=== PATIENT | male | born 1975 | race Caucasian/White ===

== ENCOUNTER 2017-02-15 02:45 | Emergency (ER) | payer OTHER ==
[~2017-02-15] VITALS: Ht 180.3 cm; Wt 88.5 kg
--- NOTE | ~2017-02-15 | EKG ---
PATIENT: OTILIO CAO UNIT #: [id number] Ventricular Rate: 81 BPM Atrial Rate: 81 BPM P-R Interval: 190 ms QRS Duration: 88 ms Q-T Interval: 390 ms QTC Calculation(Bezet): 453 ms P Kerby: 8 degrees Calculated R Kerby: -13 degrees Calculated T Kerby: 8 degrees Diagnosis Line: Normal sinus rhythm Diagnosis Line: Normal ECG Diagnosis Line: When compared with ECG of 21-MAY-2016 22:29, Diagnosis Line: No significant change was found Diagnosis Line: Confirmed by CHEVY RUBIN MD ([id number]) on Diagnosis Line: 02/17/2017 4:04:26 PM INTERPRETING MD: SCOTTIE ADAMSON
[~2017-02-15 02:45] MED LIST: AFREZZA1 EAC1 SUBQ; ASPIRIN81 MG PO; CLEOCIN PO; DAKIN'S MODIF1000 ML; LEVEMIR SQ; METFORMIN HCL500 M1 PO; MULTI VITAMIN1 EACH PO; NOVOLOG100 U/M2 SUBQ; PROTONIX PO; ROXICODONE5 MG PO; TYLENOL325 M1 PO; VANTIN200 MG PO; ZESTRIL10 M2 PO
[2017-02-15] MEDS ORDERED: LANTUS100 U/ML SUBQ (03:03)
[2017-02-15] MEDS ORDERED: LISINOPRIL10 MG PO (03:03)
[2017-02-15] MEDS ORDERED: PROTONIX PO (03:04)
[2017-02-15] MEDS ORDERED: HUMALOG100 UNIT/1 SUBQ (03:04)
[2017-02-15] MEDS ORDERED: GLUCOPHAGE500 MG PO (03:04)
[2017-02-15 03:32] LABS: BASOPHIL% 0.7 % (0-2.5); DIFF IND NO; EOSINOPHIL# 0.2 X10e3 (0-0.7); EOSINOPHIL% 3.5 % (0.0-7.0); HEMATOCRIT 39.6 % (38.0-50.0); HEMOGLOBIN 13.8 gm/dL (13.0-16.0); LYMPHOCYTE# 1.5 X10e3 (1.0-3.5); LYMPHOCYTE% 25.8 % (17.0-45.0); MEAN CELL VOLUME 93.7 FL (83-96); MEAN CORPUSCULAR HEMOGLOBIN 32.7 PG (28-34); MEAN CORPUSCULAR HGB CONC 34.9 g/dL (30-36); MEAN PLATELET VOLUME 7.8 FL (6.5-11.5); MONOCYTE# 0.6 X10e3 (0-1.0); MONOCYTE% 9.9 % (3.0-12.0); NEUTROPHIL# 3.5 X10e3 (1.5-7.1); NEUTROPHIL% 60.1 % (40-75); PLATELET COUNT 171 X10e3 (140-420); RED BLOOD COUNT 4.22 X10e (3.90-5.60); RED CELL DISTRIBUTION WIDTH 12.5 % (11.0-15.5); WHITE BLOOD COUNT 5.7 X10e3 (4.0-10.5)
[2017-02-15 03:38] LABS: INR 0.9; PROTHROMBIN TIME (PATIENT) 10.1 SECONDS (9.5-12.4)
[2017-02-15 03:45] LABS: PARTIAL THROMBOPLASTIN TIME 23.7 SECONDS (25.6-38.1)
[2017-02-15 03:51] LABS: ALBUMIN SERUM 3.8 g/dL (3.5-5.0); ALKALINE PHOSPHATASE 99 U/L (32-92); ALT (SGPT) 47 U/L (10-40); AST (SGOT) 57 U/L (10-42); BILIRUBIN, DIRECT <0.1 mg/dL (0.0-0.2); BILIRUBIN,INDIRECT 0.3 mg/dL (0.0-0.9); BILIRUBIN,TOTAL 0.4 mg/dL (0.2-2.0); BLOOD UREA NITROGEN 14 mg/dL (9-23); CALCIUM SERUM 8.3 mg/dL (8.4-10.2); CARBON DIOXIDE 23 mmol/L (22-31); CHLORIDE 104 mmol/L (100-111); GLOM FILT RATE Estimated 93.7 mL/min (>60); GLUCOSE FASTING 132 mg/dL (70-110); LIPASE 15 U/L (22-51); POTASSIUM 3.6 mmol/L (3.5-5.1); PROTEIN TOTAL SERUM 6.4 g/dL (6.0-8.3); SODIUM 135 mmol/L (135-145)
[2017-02-15 03:52] LABS: ALCOHOL BLOOD 323 mg/dL (0)
== END 2017-02-15 11:47 | disposition home or self-care (01) ==
LOC: SED 02:45
PROVIDERS: Emergency Medicine
DX: F10.129 Alcohol abuse with intoxication, unspecified (principal); E10.649 Type 1 diabetes mellitus with hypoglycemia without coma; Z90.49 Acquired absence of other specified parts of digestive tract; Z79.4 Long term (current) use of insulin
CPT/HCPCS: 36415; 80048; 80076; 82947; 83690; 85025; 85610; 85730; 93005; 96360; 96361; 96365; 96366; 99284; G0480; J3411; J3475

== ENCOUNTER 2017-02-19 16:37 | Inpatient (IN) | payer OTHER ==
[~2017-02-19] VITALS: Ht 180.3 cm; Wt 80.0 kg
--- NOTE | ~2017-02-19 | EKG ---
PATIENT: OTILIO CAO UNIT #: [id number] Ventricular Rate: 82 BPM Atrial Rate: 82 BPM P-R Interval: 144 ms QRS Duration: 86 ms Q-T Interval: 406 ms QTC Calculation(Bezet): 474 ms P Hitchcock: 0 degrees Calculated R Hitchcock: -27 degrees Calculated T Hitchcock: 39 degrees Diagnosis Line: Normal sinus rhythm Diagnosis Line: Low voltage QRS Diagnosis Line: Borderline ECG Diagnosis Line: When compared with ECG of 15-FEB-2017 03:36, Diagnosis Line: T wave amplitude has increased in Lateral leads Diagnosis Line: Confirmed by TJ VARMA MD ([id number]) on 02/20/2017 Diagnosis Line: 7:14:16 PM INTERPRETING MD: AVANI ADAMSON
--- NOTE | ~2017-02-19 | CT4 ---
[facility] A Service of [facility] RADIOLOGY TEXT RESULTS PATIENT: OTILIO CAO LOCATION: [facility] 303- : [birth year] UNIT #: [id number] AGE: [address]: Rhett Miller MD SEX: M ORDER DR: [id number] [facility] [address] [place], [place] [address] [id number] I MR#: [id number] Acc #: [id number] NAME: OTILIO CAO : 1975 SEX: M STUDY DATE/TIME: 02/19/2017 22:48 UNIT: A PCU ROOM: [facility] STUDY DESCRIPTION: CT Abd and Pelv Wo Cont Attending Physician: Rhett Miller M.D. Ordering Physician: Paul Welsh D.O. Primary Care Physician: Marilou Peter A.P.R.N. MEDICAL IMAGING REPORT This report is preliminary unless electronic signature is present EXAM CT abdomen and pelvis, noncontrast, kidney stone protocol, 02/19/2017. HISTORY 41-year-old male in the ED complaining of a 3-day history of generalized abdomen pain with nausea and vomiting. TECHNIQUE CT examination of the abdomen and pelvis was performed without oral or IV contrast using kidney stone protocol, as ordered. This CT exam was performed with one or more of the following radiation dose reduction techniques: automatic exposure control, adjustment of mA and/or kV according to patient size, and iterative reconstruction. FINDINGS ABDOMEN FINDINGS: Both kidneys, both ureters and the urinary bladder are normal in noncontrast CT appearance. Coarse parenchymal calcifications scattered throughout the pancreas compatible with chronic calcific pancreatitis. Chronic atrophy of the distal pancreatic tail. This is unchanged since 05/22/2016. No convincing evidence of acute pancreatitis. Cholecystectomy. No bile duct or pancreatic duct dilatation. Liver and spleen are normal in size and appearance. Small bowel and colon are normal in caliber and appearance, as imaged. Normal appendix. Normal-caliber abdominal aorta. PELVIS FINDINGS: Urinary bladder, prostate, and rectum are negative. No inguinal hernia. [facility] A Service of [facility] RADIOLOGY TEXT RESULTS PATIENT: OTILIO CAO LOCATION: A 303-01 : [birth year] UNIT #: [id number] AGE: [address]: Rhett Miller MD SEX: M ORDER DR: Limited lung base images show no active disease in the lower chest. IMPRESSION 1. No acute abnormality is seen within the abdomen or pelvis. No visible nephrolithiasis or evidence of urinary obstruction. 2. Chronic calcific pancreatitis with chronic atrophy of the distal pancreatic tail, unchanged since 05/22/2016. No convincing CT evidence of acute pancreatitis. 3. Cholecystectomy. No bile duct or pancreatic duct dilatation. 4. Normal appendix. Dictated by... Marino Pedroza M.D. THIS IS AN ELECTRONICALLY VERIFIED REPORT Marino Pedroza M.D. at 02/20/2017 9:57 PM HARVEYW/geraldine TD: 02/20/2017 09:58 JOB #: [id number] MEDICAL IMAGING REPORT Page 1 of 1 COPY
--- NOTE | ~2017-02-19 | HP ---
Unit #: [id number] #: [id number] Patient: OTILIO CAO [id number] [address] [place], [place] [address] [id number] I MR#: [id number] NAME: OTILIO CAO ROOM: 303 Age: 41 Sex: M Admission Date: 02/20/2017 : 1975 Attending Physician: Marcie Avila M.D. Primary Care Physician: Marilou Peter A.P.R.N. HISTORY AND PHYSICAL CHIEF COMPLAINT Intractable nausea, vomiting, with hematemesis, acute kidney injury, and uncontrolled diabetes mellitus. HISTORY This 41-year-old male with IDDM following a partial pancreatectomy for chronic pancreatitis, is admitted for intractable nausea and vomiting. The patient was well until four days prior to admission when he developed myalgias, headaches, intractable nausea and vomiting, feeling weak and dizzy. He states that he had significant amount of hematemesis with blood clots as well. He has been using sliding scale insulin for uncontrolled diabetes mellitus. He presented at this emergency department late last evening with stable vital signs, although mildly tachycardia. He was treated with Zofran, Phenergan, Protonix, 2 L of saline, small dose of morphine. I am asking for a dose of Reglan to be administered due to persistent nausea and vomiting. Labs are notable for uncontrolled diabetes mellitus, pseudohyponatremia, acute kidney injury. His hematocrit is normal, he is heme negative from below on rectal examination. Patient does drink on a daily basis, two 24 oz beers plus a shot of liquor, his last drink; however, was five days ago. PAST MEDICAL HISTORY 1. IDDM x13 years, following a partial pancreatectomy. 2. Chronic pancreatitis requiring partial pancreatectomy. 3. 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 4. Admission 05/2016 for DKA. 5. Hand surgery. 6. Cholecystectomy. ALLERGIES No known drug allergies. HOME MEDICATIONS Levemir 10 units subcu daily; NovoLog 5 units t.i.d. plus sliding scale insulin. FAMILY HISTORY Negative for diabetes. SOCIAL HISTORY The patient lives with her roommate. Drinks two 24 oz beers and one shot of liquor daily, although his last drink was several days ago. Does not Unit #: [id number] #: [id number] Patient: OTILIO CAO smoke, does not use illicit drugs. REVIEW OF SYSTEMS Notable for nausea, vomiting, hematemesis, dizziness, myalgias, headache, weakness, diabetes, chronic pancreatitis, above mentioned surgeries. All other systems were reviewed and otherwise negative. PHYSICAL EXAMINATION GENERAL: Pleasant 41-year-old male currently in no acute distress. VITAL SIGNS: Temperature 97.8, pulse 113, respiration 16, blood pressure 123/87, O2 saturation is 100% on room air. HEENT: Eyes - PERRLA. Extraocular muscles are intact. Pharynx is benign. NECK: Supple without adenopathy or thyromegaly. CHEST: Clear. CARDIAC: Normal S1 and S2 without S3, S4 or murmur. ABDOMEN: Bowel sounds are present. No hepatosplenomegaly, tenderness or masses. Well healed scars are noted. EXTREMITIES: Without clubbing, cyanosis or edema. Pedal pulses are present. No ulcers on the feet. NEUROLOGIC: Patient is awake, alert and oriented. Cranial nerves are intact. He has equal strength throughout, no tremors. RECTAL: Heme negative bowel stool. DIAGNOSTIC STUDIES LABS: Hematocrit 47.8, white blood count 10.4, normal platelet count. SMA 12 - glucose 326, BUN 26, creatinine 1.5, up from a creatinine of 1 several days ago. Sodium 129, which corrects to about 134, chloride is 87, ALT 50, alk phos 126. Normal amylase and lipase. BHOB is 4.75 but patient's anion gap is normal. IMAGING STUDIES: CT scan of the abdomen and pelvis show chronic calcific pancreatic changes with atrophy unchanged. CARDIOLOGY STUDIES: EKG - sinus rhythm, rate 82, normal appearing. ASSESSMENT 1. Intractable nausea and vomiting with hematemesis, however, the patient's hematocrit is normal and he is heme negative from below. 2. History of chronic pancreatitis, status post partial pancreatectomy with normal pancreatic enzymes. 3. History of alcohol abuse but none for several days without withdrawal. 4. Uncontrolled insulin dependent diabetes mellitus. 5. Acute kidney injury, secondary to dehydration, nausea, and vomiting. PLANS 1. IV fluids, Reglan, Zofran, proton pump inhibitor. Will ask [facility] to see. 2. Benzos and vitamins. 3. Levemir. 4. Sliding scale insulin. 5. SCDs for DVT prophylaxis. 6. Repeat labs this morning. Dictated by Marcie Avila M.D. Unit #: [id number] #: [id number] Patient: OTILIO CAO AML/ts TD: 02/20/2017 07:01 JOB #: [id number] HISTORY AND PHYSICAL Page 1 of 1 X aMrcie Avila MD X HISTORY AND PHYSICAL
--- NOTE | ~2017-02-19 | CO ---
Unit #: [id number] #: [id number] Patient: OTILIO CAO [id number] [address] [place], [place] [address] [id number] I MR#: [id number] NAME: OTILIO CAO ROOM: 303 Age: 41 Sex: M Admission Date: 02/20/2017 : 1975 Attending Physician: Rhett Miller M.D. Primary Care Physician: Marilou Peter A.P.R.N. Consultation Date: 02/20/2017 CONSULTATION REPORT REASON FOR CONSULTATION Hematemesis. Thank you very much for asking us to see Mr. Cao. HISTORY OF PRESENT ILLNESS He is a 41-year-old white male, who has a long history of heavy alcohol use and past surgical history for cholecystectomy and partial pancreatectomy due to chronic pancreatitis. This was performed in [place]. He states that 3 to 4 days ago, he developed some intermittent nausea, vomiting, and had coffee-grounds emesis. He has had no rectal bleeding. No melena. He has no abdominal pain. He presents at this time for further evaluation and treatment. CT scan of the abdomen and pelvis was performed. Other than postsurgical changes of the pancreas, no acute intraabdominal abnormality was found. ALLERGIES No known medical allergies. MEDICATIONS Lisinopril, Lantus, Humalog, Glucophage, Protonix. PAST SURGICAL HISTORY Partial pancreatectomy and cholecystectomy. PAST MEDICAL HISTORY Hypertension, chronic pancreatitis, diabetes. SOCIAL HISTORY No tobacco use. The patient still drinks some hard liquor and beer 4 to 5 days a week. REVIEW OF SYSTEMS Negative except for above. IMMUNIZATION STATUS Unknown. FAMILY HISTORY Noncontributory. PHYSICAL EXAMINATION GENERAL: Well-developed, well-nourished white male, in no apparent Unit #: [id number] #: [id number] Patient: OTILIO CAO distress. VITAL SIGNS: Afebrile. Vital signs stable. NECK: Supple. No thyromegaly or adenopathy. HEENT: Sclerae nonicteric. Extraocular movements are intact. BACK: No CVA or spinous tenderness. ABDOMEN: Flat, soft, nontender. Well-healed chevron upper abdominal incision. EXTREMITIES: No calf tenderness. No erythema. DIAGNOSTIC STUDIES LABORATORY RESULTS: Reveal the patient to have a CMP that shows a glucose of 372, BUN 24, sodium 130, chloride 94, CO2 16. Normal liver function studies, amylase and lipase. PT and PTT were 10.1 and 23.7 respectively. White count is 8 with hemoglobin 15.3, hematocrit 44.8, MCV of 95.5, and platelet count of 156,000. IMPRESSION A 41-year-old white male with hematemesis, history of chronic pancreatitis, and continued alcohol use. We feel he needs upper endoscopy for further evaluation. All the risks and benefits of the procedure full explained with the patient in detail. He understands the risk of bleeding, perforation, emergency surgery, , transfer, and other risks. He understands and requests to proceed. Dictated by... Janet Beltran/jennifer TD: 02/20/2017 16:14 JOB #: [id number] CC: [facility] CONSULTATION REPORT Page 1 of 1 X Barak Mancini MD X CONSULTATION REPORT
--- NOTE | ~2017-02-19 | OR ---
Unit #: [id number] #: [id number] Patient: OTILIO CAO [id number] [address] [address] [id number] I MR#: [id number] NAME: OTILIO CAO ROOM: 303 Date of Procedure: 02/20/2017 Admission Date: 02/20/2017 Surgeon: Barak Mancini M.D. : 1975 Attending Physician: Rhett Miller M.D. Primary Care Physician: Marilou Peter A.P.R.N. OPERATIVE REPORT PREOPERATIVE DIAGNOSIS Hematemesis. POSTOPERATIVE DIAGNOSIS Hematemesis. PROCEDURES PERFORMED 1. Esophagogastroduodenoscopy. 2. Biopsy of antrum for Helicobacter pylori testing. ANESTHESIA Monitored anesthesia care. FINDINGS The patient was found to have on an upper endoscopy a medium-sized hiatal hernia, severe ulcerative esophagitis, and ulcerative gastritis. SPECIMENS Sent to Pathology. COMPLICATIONS None apparent. CONDITION The patient tolerated the procedure well. INDICATIONS FOR PROCEDURE The patient is a 41-year-old white male, who has a long history of heavy alcohol use. He has had a partial pancreatectomy for chronic pancreatitis. He developed nausea, vomiting, and hematemesis in the last several days. He presents at this time for evaluation by upper endoscopy. He was reportedly Hemoccult negative on rectal examination in the emergency room. DESCRIPTION OF PROCEDURE After obtaining informed consent, the patient was brought to the endoscopy suite and after adequate monitored anesthesia care, had the endoscope placed through the mouth into the upper esophagus under direct vision. It was advanced to the second and third portion of the duodenum without difficulty with the lumen always in view. There was no blood present. The second and third portion of the duodenum were normal as was the Unit #: [id number] #: [id number] Patient: OTILIO CAO duodenal bulb. The pylorus opened normally. In the distal stomach, the patient was found to have ulcerative gastritis present. No blood was present. A biopsy was obtained for Helicobacter pylori testing. On retroflexing back to the GE junction, there was a medium sized hiatal hernia, but no other significant abnormalities in the proximal stomach. On pulling back above the GE junction, there was no stenosis, stricture, or neoplasm seen, but there was severe ulcerative esophagitis involving the distal two-thirds of the esophagus. There was no blood present. The remaining portion of the esophagus was within normal limits. Laryngeal structures were grossly normal as viewed from above. The patient went from the endoscopy suite to the recovery area in stable condition. RECOMMENDATIONS Proton pump inhibitors. He needs to stop his alcohol use. All has been communicated to Dr. Miller of [facility] physicians. Dictated by... Barak Mancini M.D. ISABEL/jennifer TD: 02/20/2017 16:42 JOB #: [id number] CC: [facility] OPERATIVE REPORT Page 1 of 1 X Barak Mancini MD X PROCEDURE OPERATIVE NOTE
[~2017-02-19 16:37] MED LIST changes: +GLUCOPHAGE500 MG PO; +HUMALOG100 UNIT/1 SUBQ; +LANTUS100 U/ML SUBQ; +LISINOPRIL10 MG PO
[2017-02-19 17:24] LABS: BASOPHIL# 0.1 X10e3 (0-0.3); BASOPHIL% 0.7 % (0-2.5); EOSINOPHIL% 0.1 % (0.0-7.0); HEMATOCRIT 47.8 % (38.0-50.0); HEMOGLOBIN 16.7 gm/dL (13.0-16.0); LYMPHOCYTE# 1.3 X10e3 (1.0-3.5); LYMPHOCYTE% 12.7 % (17.0-45.0); MEAN CELL VOLUME 93.1 FL (83-96); MEAN CORPUSCULAR HEMOGLOBIN 32.6 PG (28-34); MEAN PLATELET VOLUME 7.3 FL (6.5-11.5); NEUTROPHIL% 76.5 % (40-75); PLATELET COUNT 213 X10e3 (140-420); RED BLOOD COUNT 5.13 X10e (3.90-5.60); RED CELL DISTRIBUTION WIDTH 12.4 % (11.0-15.5); WHITE BLOOD COUNT 10.4 X10e3 (4.0-10.5)
[2017-02-19 17:27] LABS: DIFF IND NO
[2017-02-19 17:48] LABS: ALBUMIN SERUM 4.3 g/dL (3.5-5.0); BILIRUBIN, DIRECT 0.2 mg/dL (0.0-0.2); BILIRUBIN,INDIRECT 1.1 mg/dL (0.0-0.9); BILIRUBIN,TOTAL 1.3 mg/dL (0.2-2.0); BUN/CREATININE RATIO 17.33; CALCIUM SERUM 9.1 mg/dL (8.4-10.2); CREATININE SERUM 1.5 mg/dL (0.6-1.4); GLOM FILT RATE Estimated 57.4 mL/min (>60); POTASSIUM 3.9 mmol/L (3.5-5.1); PROTEIN TOTAL SERUM 8.2 g/dL (6.0-8.3)
[2017-02-19 21:13] LABS: POC - CKMB 1.7 ng/mL (0.0-7.9); POC - TROPONIN <0.05 ng/mL (<=0.05)
[2017-02-20 03:47] LABS: BASOPHIL# 0.1 X10e3 (0-0.3); BASOPHIL% 0.7 % (0-2.5); EOSINOPHIL% 0.1 % (0.0-7.0); HEMATOCRIT 44.8 % (38.0-50.0); HEMOGLOBIN 15.3 gm/dL (13.0-16.0); LYMPHOCYTE% 12.2 % (17.0-45.0); MEAN CELL VOLUME 95.5 FL (83-96); MEAN CORPUSCULAR HEMOGLOBIN 32.6 PG (28-34); MEAN CORPUSCULAR HGB CONC 34.2 g/dL (30-36); MONOCYTE# 0.9 X10e3 (0-1.0); MONOCYTE% 11.2 % (3.0-12.0); NEUTROPHIL# 6.1 X10e3 (1.5-7.1); NEUTROPHIL% 75.8 % (40-75); PLATELET COUNT 156 X10e3 (140-420); RED CELL DISTRIBUTION WIDTH 12.1 % (11.0-15.5)
[2017-02-20 03:49] LABS: DIFF IND NO
[2017-02-20 04:08] LABS: BUN/CREATININE RATIO 17.14; CALCIUM SERUM 8.4 mg/dL (8.4-10.2); CREATININE SERUM 1.4 mg/dL (0.6-1.4); GLOM FILT RATE Estimated 62.4 mL/min (>60); POTASSIUM 4.7 mmol/L (3.5-5.1)
[2017-02-20 06:48] LABS: URINE SOURCE CLEAN CATCH
[2017-02-20 06:57] LABS: URINE APPEARANCE CLEAR; URINE BILIRUBIN NEG (NEG); URINE BLOOD NEG (NEG); URINE COLOR YELLOW; URINE GLUCOSE >1000 MG/DL (NEG); URINE KETONE 3+ (NEG); URINE LEUKOCYTE ESTERASE NEG (NEG); URINE NITRATE NEG (NEG); URINE PH 5.5 (5-8); URINE PROTEIN 1+ (NEG); URINE SPECIFIC GRAVITY 1.027 (1.003-1.035)
[2017-02-20 06:59] LABS: URBCS1 AUWI 0-2 /[HPF] (0-2); URINE BACTERIA AUWI NEG (NEGATIVE); URINE SQUAMOUS EPITHELIAL CELL NONE SEEN /[HPF]; UWBCS1 AUWI 0-2 (0-5)
[2017-02-20 07:11] LABS: CULTURE INDICATED? NO
[2017-02-20] MEDS ORDERED: HUMALOG100 UNIT/1 SUBQ (16:38)
[2017-02-20] MEDS ORDERED: LANTUS100 U/ML SUBQ (16:38)
[2017-02-20] MEDS ORDERED: PROTONIX PO (16:39)
[2017-02-20] MEDS ORDERED: REGLAN5 MG PO (16:40)
== END 2017-02-20 18:29 | disposition home or self-care (01) | DRG 381 ==
LOC: CED 16:37 → CEDOF 02-20 02:56 → C3A PCU 02-20 04:16 → CED 02-20 11:45 → CEDOF 02-20 11:45 → C3A PCU 02-20 11:45 → CEDOF 02-20 11:45 → C3A PCU 02-20 14:45 → CEDOF 02-20 14:45 → C3A PCU 02-20 18:29
PROVIDERS: Emergency Medicine; Internal Medicine; Surgery
PROC: 0DB68ZZ Excision of Stomach, Via Natural or Artificial Opening Endoscopic (ICD-10-PCS; principal; 2017-02-20 09:27)
DX: K22.10 Ulcer of esophagus without bleeding (principal); N17.9 Acute kidney failure, unspecified; K92.0 Hematemesis; E11.65 Type 2 diabetes mellitus with hyperglycemia; Z79.4 Long term (current) use of insulin; Z90.49 Acquired absence of other specified parts of digestive tract; E86.0 Dehydration; F10.10 Alcohol abuse, uncomplicated; K44.9 Diaphragmatic hernia without obstruction or gangrene; K29.60 Other gastritis without bleeding
CPT/HCPCS: 36415; 74176; 80048; 80076; 81003; 82010; 82150; 82553; 82947; 83036; 83690; 84484; 85025; 86850; 86900; 86901; 87077; 93005; 96361; 96374; 96375; 99285; C9113; J1815; J2060; J2270; J2405; J2550; J2765; J3411